=== PATIENT | female | born 1940 | race Caucasian/White ===

== ENCOUNTER 2017-04-19 06:40 | Day surgery (SDC) | payer MEDICARE, OTHER ==
--- NOTE | ~2017-04-19 | EGD ---
EGD REPORT [facility] [address] [place]. [id number] NAME: CHELLE SMITH : [birth year] STATUS : REG [facility]#: [id number] AGE: 76 ADM/REG DATE : 04/19/17 MR#: [id number] REPORT SERV DATE: 04/19/17 DICTATED BY: ASHLEY AGUERO DATE: 04/19/17 REPORT STATUS : Draft [facility]ANS[facility]ED [facility]: [facility] DATE: 04/19/17 Endoscopy Center Patient Name: Chelle Smith Date of : 1940 Attending MD: ASHLEY AGUERO, Procedure Date No Time: 04/19/2017 Procedure: Upper EUS Indications: Suspected chronic pancreatitis, Acute recurrent pancreatitis Referring MD: THOMAS CONNORS Medicines: Monitored Anesthesia Care Complications: No immediate complications. Estimated blood loss: None. Procedure: Pre-Anesthesia Assessment: - ASA Grade Assessment: III - A patient with severe systemic disease. After obtaining informed consent, the endoscope was passed under direct vision. Throughout the procedure, the patient's blood pressure, pulse, and oxygen saturations were monitored continuously. The GIF H190 [id number] was introduced through the mouth, and advanced to the second part of duodenum. The Endoscope was introduced through the mouth, and advanced to the second part of duodenum. Findings: Endoscopic Finding : The examined esophagus was endoscopically normal. The entire examined stomach was endoscopically normal. The cardia and gastric fundus were normal on retroflexion. The examined duodenum was normal. Biopsies were taken with a cold forceps for histology. Endosonographic Finding : There was no sign of significant endosonographic abnormality in the entire pancreas. The pancreas was well visualized, no pathologic lymphadenopathy, no masses, no calcifications, the pancreatic duct was well visualized from ampulla to tail, the pancreatic duct was regular in contour. There was dilation in the common bile duct which measured up to 7 mm. No lymphadenopathy seen. There was no sign of significant endosonographic abnormality in the examined duodenum. Endosonographic images of the stomach were unremarkable. There was no sign of significant endosonographic abnormality in the esophagus. EGD REPORT [address] [address] NAME: CHELLE SMITH : [birth year] STATUS : REG [facility] [place] PAT#: [id number] AGE: 76 ADM/REG DATE : 04/19/17 MR#: [id number] REPORT SERV DATE: 04/19/17 DICTATED BY: ASHLEY AGUERO DATE: 04/19/17 REPORT STATUS : Draft TRANSCRIBED BY: [employer] DATE: 04/19/17 Impression: - Normal esophagus. - Normal stomach. - Normal examined duodenum. Biopsied. - There was no sign of significant pathology in the entire pancreas. - There was dilation in the common bile duct which measured up to 7 mm. - There was no sign of significant pathology in the examined duodenum. - Endosonographic images of the stomach were unremarkable. - There was no sign of significant pathology in the esophagus. Recommendation: - Return to previous diet. - Continue present medications. - Resume Xarelto (rivaroxaban) at prior dose today. - Await path results. Procedure Code(s): --- Professional --- 90347, Esophagogastroduodenoscopy, flexible, transoral; with endoscopic ultrasound examination, including the esophagus, stomach, and either the duodenum or a surgically altered stomach where the jejunum is examined distal to the anastomosis 62280, 59, Esophagogastroduodenoscopy, flexible, transoral; with biopsy, single or multiple Diagnosis Code(s): --- Professional --- K83.8, Other specified diseases of biliary tract K85.9, Acute pancreatitis, unspecified CPT copyright 2013 [employer]. All rights reserved. The codes documented in this report are preliminary and upon brush or broom cutter review may be revised to meet current compliance requirements. ASHLEY AGUERO, 04/19/2017 9:16 AM Number of Addenda: 0 Note Initiated On: 04/19/2017 8:26 AM Scope Withdrawal Time 0 hours 0 minutes 0 seconds [id number] [place] [id number]
--- NOTE | ~2017-04-19 | EGD ---
EGD REPORT [facility] [address] [place]. [address] NAME: CHELLE SMITH : 36 STATUS : REG [facility]#: [id number] AGE: 76 ADM/REG DATE : 04/19/17 MR#: [id number] REPORT SERV DATE: 04/19/17 DICTATED BY: ASHLEY AGUERO DATE: 04/19/17 REPORT STATUS : Draft TRANSCRIBED BY: [employer] DATE: 04/19/17 Endoscopy Center Patient Name: Chelle Smith Date of : 1940 Attending MD: ASHLEY AGUERO, Procedure Date No Time: 04/19/2017 Procedure: Colonoscopy Indications: Chronic diarrhea, Hematochezia Referring MD: THOMAS CONNORS Medicines: Monitored Anesthesia Care Complications: No immediate complications. Estimated blood loss: None. Procedure: Pre-Anesthesia Assessment: - ASA Grade Assessment: III - A patient with severe systemic disease. After I obtained informed consent, the scope was passed under direct vision. Throughout the procedure, the patient's blood pressure, pulse, and oxygen saturations were monitored continuously. The PCF [id number] was introduced through the anus and advanced to the cecum, identified by appendiceal orifice and ileocecal valve. The colonoscopy was performed without difficulty. The patient tolerated the procedure well. The quality of the bowel preparation was good. The ileocecal valve, appendiceal orifice and rectum were photographed. Findings: The perianal and digital rectal examinations were normal. Normal mucosa was found in the entire colon. Biopsies were taken with a cold forceps for histology. Verification of patient identification for the specimen was done. Estimated blood loss was minimal. A few small-mouthed diverticula were found in the sigmoid colon. Internal hemorrhoids were found, and they were Grade II (internal hemorrhoids that prolapse but reduce spontaneously). Impression: - Normal mucosa in the entire examined colon. Biopsied. - Diverticulosis in the sigmoid colon. - Internal hemorrhoids. Recommendation: - Patient has a contact number available for emergencies. The signs and symptoms of potential delayed complications were discussed with the patient. Return to normal activities tomorrow. Written discharge instructions were provided to the patient. - Return to previous diet. - Continue present medications. EGD REPORT [address] [address] NAME: CHELLE SMITH : [birth year] STATUS : REG [facility] [place] PAT#: [id number] AGE: 76 ADM/REG DATE : 04/19/17 MR#: [id number] REPORT SERV DATE: 04/19/17 DICTATED BY: ASHLEY AGUERO DATE: 04/19/17 REPORT STATUS : Draft TRANSCRIBED BY: [employer] DATE: 04/19/17 - Await pathology results. - Repeat colonoscopy is not recommended for screening purposes. Procedure Code(s): --- Professional --- 36743, Colonoscopy, flexible, proximal to splenic flexure; with biopsy, single or multiple Diagnosis Code(s): --- Professional --- K64.1, Second degree hemorrhoids K57.30, Diverticulosis of large intestine without perforation or abscess without bleeding K52.9, Noninfective gastroenteritis and colitis, unspecified K92.1, Melena CPT copyright 2013 [employer]. All rights reserved. The codes documented in this report are preliminary and upon pattern changer review may be revised to meet current compliance requirements. ASHLEY AGUERO, 04/19/2017 9:21 AM Number of Addenda: 0 Note Initiated On: 04/19/2017 8:18 AM Scope Withdrawal Time 0 hours 11 minutes 5 seconds [id number] [place] [id number]
[~2017-04-19 06:40] MED LIST: ASABAYER PO; CO Q-10100 MG PO; D 5000 PO; DIAZEPAM PO; EXCEDRIN EXTRA1 EACH PO; FOOT CREAM TOP; MEDS; P10 PO; PREM45 PO; PROAIR HFA INH; PROBIOTIC PO; TOPXL25 PO; TOPXL50 PO; V5 PO; VITAMIN B-12 PO; VITAMIN D1000 UNI1 PO; XARELTO20 MG PO; [UNRECOGNIZED DRUG - OTHER] TOP
== END 2017-04-19 23:59 | disposition home or self-care (01) ==
LOC: DMU 06:40
PROVIDERS: Internal Medicine Gastroenterology
PROC: 0DB98ZX Excision of Duodenum, Via Natural or Artificial Opening Endoscopic, Diagnostic (ICD-10-PCS; principal; 2017-04-19 08:00)
PROC: 0DBE8ZX Excision of Large Intestine, Via Natural or Artificial Opening Endoscopic, Diagnostic (ICD-10-PCS; 2017-04-19 08:00)
PROC: 0DJ08ZZ Inspection of Upper Intestinal Tract, Via Natural or Artificial Opening Endoscopic (ICD-10-PCS; 2017-04-19 08:00)
DX: K52.9 Noninfective gastroenteritis and colitis, unspecified (principal); K92.1 Melena; K64.1 Second degree hemorrhoids; K57.30 Diverticulosis of large intestine without perforation or abscess without bleeding; K83.8 Other specified diseases of biliary tract; K85.90 Acute pancreatitis without necrosis or infection, unspecified; I10 Essential (primary) hypertension; J45.909 Unspecified asthma, uncomplicated; K21.9 Gastro-esophageal reflux disease without esophagitis; I48.91 Unspecified atrial fibrillation; Z88.5 Allergy status to narcotic agent; Z79.82 Long term (current) use of aspirin; Z79.899 Other long term (current) drug therapy; Z90.710 Acquired absence of both cervix and uterus; Z98.41 Cataract extraction status, right eye; Z98.42 Cataract extraction status, left eye; Z98.890 Other specified postprocedural states; Z90.49 Acquired absence of other specified parts of digestive tract
CPT/HCPCS: 88305; A9270-GY; C1725